=== PATIENT | female | born 1970 | race Two or more races ===

== ENCOUNTER 2025-07-13 10:38 | Emergency (ER) | payer MEDICARE, MEDICAID ==
[~2025-07-13] VITALS: Ht 172.7 cm; Wt 90.9 kg
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
[2025-07-13 12:31] VITALS: BP 111/72; PULSE 88; RESP 16; TEMP 97.7; O2SAT 95
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
[2025-07-13 19:54] LABS: Amphetamine Screen, Urine Neg (NEGATIVE); Barbiturate Scree,Urine Neg (NEGATIVE); Benzodiazephine Screen, Urine Neg (NEGATIVE); Cannabinoid Screen, Urine Neg (NEGATIVE); Cocaine Screen, Urine Neg (NEGATIVE); Opiate Scree,Urine Neg (NEGATIVE); Phencyclidine Screen, Urine Neg (NEGATIVE)
== END 2025-07-13 20:56 | disposition left against medical advice (07) ==
LOC: ER 10:38 → EDBD 10:38 → EDUNIT# 10:38 → ER 20:56
DX: F20.9 Schizophrenia, unspecified (principal); F31.9 Bipolar disorder, unspecified; F17.200 Nicotine dependence, unspecified, uncomplicated; H91.90 Unspecified hearing loss, unspecified ear; Z78.1 Physical restraint status; Z91.51 Personal history of suicidal behavior; Z79.899 Other long term (current) drug therapy; Y04.0XXA Assault by unarmed brawl or fight, initial encounter; Y93.89 Activity, other specified; Y92.89 Other specified places as the place of occurrence of the external cause; Y99.8 Other external cause status
CPT/HCPCS: 36415; 80307; 80320

== ENCOUNTER 2025-07-20 07:57 | Inpatient (IN) | payer MEDICARE, MEDICAID ==
[~2025-07-20] VITALS: Ht 167.6 cm; Wt 94.3 kg
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
[2025-07-20 08:41] VITALS: PULSE 74; RESP 16; O2SAT 99
[2025-07-20 09:20] LABS: Hematocrit 40.1 % (36.0-46.0); Hemoglobin 13.0 g/dL (12.2-16.2); Mean Corpuscular Hemoglobin 27.1 pg (28.0-32.0); Mean Corpuscular Volume 83.5 fL (80.0-100.0); Nucleated Red Blood Cells % 0.0 %
[2025-07-20 09:24] LABS: Chloride 103 mmol/L (98-107); Potassium 3.8 mmol/L (3.5-5.1); Sodium 138 mmol/L (136-145)
[2025-07-20 09:25] LABS: Anion Gap 13 (5-15); Calcium 9.8 mg/dL (8.7-10.4); Carbon Dioxide 22 mmol/L (20-31)
[2025-07-20 09:30] LABS: BUN/Creatinine Ratio 27.8 (10.0-20.0); Blood Urea Nitrogen 22 mg/dL (9-23); Glucose 89 mg/dL (74-106)
[2025-07-20] MEDS: FAMOTIDINE 20 MG TAB PO ONE (10:17)
[2025-07-20] MEDS: ONDANSETRON ODT 4 MG TAB PO ONE (10:18)
[2025-07-20] MEDS: SODIUM CHLORIDE 0.9% 1,000 ML IV ONE (11:56)
--- NOTE | 2025-07-20 12:00 | DVH ---
CHEST RADIOGRAPH Indication: hypothermia Technique: XY CHEST PORTABLE COMPARISON: None FINDINGS: The cardiac silhouette is enlarged. The lungs demonstrate bilateral patchy airspace opacities. The pulmonary vasculature is prominent. There is no pleural effusion. There is no pneumothorax. IMPRESSION: Cardiomegaly with pulmonary vascular congestion and bilateral patchy airspace opacities.
[2025-07-20] MEDS: AZITHROMYCIN 250 MG TAB PO ONE (14:34)
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
[2025-07-20] MEDS: AZITHROMYCIN 500MG/250ML 250 ML IV ONE (14:45)
[2025-07-20] MEDS ORDERED: ACETAMINOPHEN 325 MG TAB PO PRN (14:45)
[2025-07-20] MEDS ORDERED: ONDANSETRON HCL 4 MG/2 ML VIAL IV PRN (14:45)
[2025-07-20] MEDS ORDERED: MORPHINE SULFATE INJ 2 MG/ml SYRG IV PRN (14:45)
[2025-07-20] MEDS: SODIUM CHLORIDE 0.9% 1,000 ML IV SCH (15:22)
--- NOTE | 2025-07-20 20:30 | DVH ---
Exam: CT CT AB PEL WO CON-NO ORAL OR IV History: Abdominal pain Comparison Study: None Technique: Multidetector spiral CT of the abdomen was performed from lung bases to pubic symphysis. Imaging was performed without IV contrast. Axial, coronal and sagittal multiplanar reformats were obtained from the axial data set by the technologist. Radiation Dose : 1. Abdomen/Pelvis: CTDIvol 21.09 mGy, DLP 1171.87 mGy*cm. Findings: Evaluation of solid organs is limited due to lack of intravenous contrast use. Lung Bases: Mild left basilar atelectasis /consolidation. Liver: The liver is normal in size. No focal lesions. Gallbladder and Biliary Tree: Unremarkable Spleen: Unremarkable Pancreas: The pancreas is grossly normal in appearance. Adrenal Glands: Unremarkable Kidneys: Kidneys are grossly normal without calculi or hydronephrosis. Bladder: Grossly unremarkable for degree of distention. Bowel: The stomach is grossly normal in appearance. Small bowel and colon are normal in caliber and distribution. The appendix is not visualized; however, no secondary findings of acute appendicitis identified. Ascites: Absent Lymphadenopathy: No mesenteric, retroperitoneal or periportal lymphadenopathy. Abdominal Wall and Mesentery: Unremarkable. Vasculature: The visualized abdominal aorta is normal in size and caliber. Evaluation of abdominal and pelvic vessels is limited due to lack of intravenous contrast. Pelvic Organs: Unremarkable Musculoskeletal: No aggressive focal bony lesions, acute fractures or dislocation. IMPRESSION: No acute abdominal or pelvic findings. Radiation optimization: All CT scans at this facility use at least one of these dose optimization techniques: automated exposure control mA and/or kV adjustment per patient size (includes targeted exams where dose is matched to clinical indication) or iterative reconstruction.
[2025-07-20 20:49] LABS: Urine Protein, UAD TRACE (Negative)
[2025-07-20 22:29] VITALS: PULSE 90; RESP 12; O2SAT 96
[2025-07-21] MEDS: SODIUM CHLORIDE 0.9% 500 ML IV ONE (03:16)
[2025-07-21] MEDS: NOREPINEPHRINE 8 MG/250ML KIT 250 ML IV ONE (04:30)
[2025-07-21] MEDS: NOREPINEPHRINE 8 MG/250ML KIT 250 ML IV SCH (04:36)
[2025-07-21 04:48] LABS: Hematocrit 32.0 % (36.0-46.0); Hemoglobin 10.5 g/dL (12.2-16.2); Mean Corpuscular Hemoglobin 27.2 pg (28.0-32.0); Mean Corpuscular Volume 83.2 fL (80.0-100.0); Nucleated Red Blood Cells % 0.0 %
[2025-07-21 05:07] LABS: Alanine Aminotransferase 27 U/L (7-40); Alkaline Phosphatase 108 U/L (46-116); Anion Gap 9 (5-15); BUN/Creatinine Ratio 20.0 (10.0-20.0); Bilirubin, Total 0.4 mg/dL (0.2-1.0); Blood Urea Nitrogen 13 mg/dL (9-23); Carbon Dioxide 23 mmol/L (20-31); Potassium 3.9 mmol/L (3.5-5.1); Sodium 144 mmol/L (136-145)
[2025-07-21 05:16] LABS: Albumin 3.1 g/dL (3.2-4.8); Calcium 8.1 mg/dL (8.7-10.4); Chloride 112 mmol/L (98-107); Glucose 64 mg/dL (74-106); Total Protein 5.4 g/dL (5.7-8.2)
[2025-07-21 07:30] VITALS: PULSE 81; RESP 20; O2SAT 99
[2025-07-21] MEDS: AZITHROMYCIN 500MG/250ML 250 ML IV SCH (10:30)
[2025-07-21] MEDS: ENOXAPARIN SOD 40 MG/0.4 ML SYRINGE SC SCH (10:42)
--- NOTE | 2025-07-21 11:09 | DVHSR ---
APPROVED REPORT EXAM: Two-dimensional and M-mode echocardiogram with Doppler and color Doppler. DIMENSIONS LVDd 4.6 (3.8-5.7cm) LA (2D) 3.4 (1.9-4.0cm) Aortic Root 3.1 (2.0-3.7cm) LVDs 2.1 (2.5-4.0cm) LA (MM) (1.9-4.0cm) Aortic Cusp Exc 1.8 (1.5-2.0cm) EF (%) 75.0 (55-70%) Rt. Atrium 4.8 (1.9-4.0cm) Asc. Aorta cm IVSd 0.7 (0.7-1.1cm) RV (D) (1.8-2.4cm) PWd 0.8 (0.7-1.1cm) Mitral Valve Mitral Mitral Stenosis E wave 1.00m/s MV Mean GR. mmHg A wave 1.30m/s MV Peak GR. mmHg E/A ratio 0.8 2D MVA cm2 Aortic Valve Aortic Valve Aortic Stenosis V1 1.40m/s AO Mean GR. 9mmHg V2 1.90m/s AO Peak GR. 15mmHg LVOT Diameter 1.9 (1.8-2.4cm) Doppler YOANNA 2.09cm2 Pulmonic Valve V2 1.30m/s Tricuspid Valve TR Velocity 2.20m/s RVSP 30mmHg Conclusion Technically good study. Sinus rhythm. Concentric LVH. Mild right atrial enlargement. Valves are normal. EF of 65% with normal RV function. Mild TR. RVSP of 30 mmHg. No pericardial effusion masses or vegetations.
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
[2025-07-21 19:00] VITALS: PULSE 79; RESP 12; O2SAT 96
[2025-07-21 22:57] VITALS: BP 113/58; PULSE 80; RESP 17; O2SAT 95
[2025-07-22] VITALS (9 sets, daily range): BP systolic 113–142; BP diastolic 43–85; PULSE 67–89; RESP 17–20; TEMP 97.5–98.5; O2SAT 93–98
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
[2025-07-23] VITALS (8 sets, daily range): BP systolic 100–154; BP diastolic 59–84; PULSE 61–91; RESP 16–20; TEMP 97.4–98.6; O2SAT 94–98
[2025-07-23 09:27] LABS: Hematocrit 36.1 % (36.0-46.0); Hemoglobin 12.0 g/dL (12.2-16.2); Mean Corpuscular Hemoglobin 27.6 pg (28.0-32.0); Mean Corpuscular Volume 83.1 fL (80.0-100.0); Nucleated Red Blood Cells % 0.0 %
[2025-07-23 09:34] LABS: Potassium 3.7 mmol/L (3.5-5.1); Sodium 143 mmol/L (136-145)
[2025-07-23 09:35] LABS: Anion Gap 9 (5-15); Calcium 9.2 mg/dL (8.7-10.4); Carbon Dioxide 25 mmol/L (20-31)
[2025-07-23 09:40] LABS: BUN/Creatinine Ratio 13.7 (10.0-20.0); Blood Urea Nitrogen 10 mg/dL (9-23); Chloride 109 mmol/L (98-107); Glucose 191 mg/dL (74-106)
[2025-07-23 09:41] LABS: Magnesium 2.0 mg/dL (1.6-2.6)
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
[2025-07-24] VITALS (8 sets, daily range): BP systolic 116–137; BP diastolic 71–88; PULSE 72–96; RESP 18; TEMP 97.2–97.7; O2SAT 94–100
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
[2025-07-25 01:00] VITALS: BP 115/75; PULSE 91; RESP 18; TEMP 97.6; O2SAT 93
[2025-07-25 05:00] VITALS: BP 120/74; PULSE 92; RESP 17; TEMP 98; O2SAT 96
[2025-07-25 08:00] VITALS: PULSE 49; PULSE 81; PULSE 88; RESP 16; O2SAT 93
[2025-07-25 09:00] VITALS: BP 100/73; PULSE 88; RESP 16; TEMP 97.3; O2SAT 93
[2025-07-25] MEDS ORDERED: CEFD300C2 PO (12:16)
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
[2025-07-25 13:00] VITALS: BP 121/60; PULSE 82; RESP 18; TEMP 97.6; O2SAT 98
[2025-07-25 13:59] VITALS: TEMP 36.4
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
== END 2025-07-25 15:21 | disposition home or self-care (01) | DRG 871 ==
LOC: ER 07:57 → EDBD 07:57 → OVERFLOW 14:33 → TELE-WESTW 07-21 22:51
PROVIDERS: ADMIT Internal Medicine; ATTEND Internal Medicine
DX: A41.59 Other Gram-negative sepsis (principal); J15.69 Pneumonia due to other Gram-negative bacteria; J96.00 Acute respiratory failure, unspecified whether with hypoxia or hypercapnia; J15.9 Unspecified bacterial pneumonia; T68.XXXA Hypothermia, initial encounter; F20.9 Schizophrenia, unspecified; E66.01 Morbid (severe) obesity due to excess calories; Z79.899 Other long term (current) drug therapy; Z68.32 Body mass index [BMI] 32.0-32.9, adult; X31.XXXA Exposure to excessive natural cold, initial encounter
CPT/HCPCS: 36415; 71045; 74176; 80048; 80053; 81001; 83605; 83735; 85025; 87040; 87081; 93306; 96365; 99291; G0378; Q0162